=== PATIENT | female | born 1995 | race Caucasian/White ===

== ENCOUNTER 2020-04-01 08:34 | Emergency (ER) | payer OTHER ==
[~2020-04-01] VITALS: Ht 172.7 cm; Wt 83.9 kg
[2020-04-01 08:36] VITALS: BP 124/55
--- NOTE | 2020-04-01 08:40 | NUR ---
Patient ambulated to bed 4. RN evaluating patient at bedside.
--- NOTE | 2020-04-01 08:44 | NUR ---
24 y/o female from home presents to ED with laceration to chin. Pt states she was going hikin and fell and hit chin on rock. Denies LOC, bleeding controlled at this time. 2/10 aching pain, took ibuprofen for pain at time of accident. Awake and alert. VSS
[2020-04-01] MEDS ORDERED: LIDOCAINE/EPI 1% 1:100000 20 ML VIAL INJ ONE ×2 (08:50→08:51)
[2020-04-01] MEDS ORDERED: BACITRACIN OINT 500 UNITS/GM PKT TP ONE ×2 (08:50→10:00)
--- NOTE | 2020-04-01 08:59 | NUR ---
Dr Chowdhury bedside examining pt
--- NOTE | 2020-04-01 10:01 | NUR ---
9 sutures placed to chin, bacitracin applied and bandaid placed to lac repair. Pt tolerated well
[2020-04-01 10:18] VITALS: BP 124/55
--- NOTE | 2020-04-01 10:18 | NUR ---
Patient discharged with v/s stable. Written and verbal after care instructions given and explained. Patient alert, oriented and verbalized understanding of instructions. Ambulatory with steady gait. All questions addressed prior to discharge. ID band removed. Patient advised to follow up with PMD. Rx of Naprosyn 500mg and Bacitracin given. Patient educated on indication of medication including possible reaction and side effects. Opportunity to ask questions provided and answered.
== END 2020-04-01 10:18 | disposition home or self-care (01) ==
LOC: MED 08:34
DX: S01.81XA Laceration without foreign body of other part of head, initial encounter (principal); S60.511A Abrasion of right hand, initial encounter; S80.211A Abrasion, right knee, initial encounter; S40.211A Abrasion of right shoulder, initial encounter; W18.30XA Fall on same level, unspecified, initial encounter; Y93.89 Activity, other specified; Y92.89 Other specified places as the place of occurrence of the external cause; Y99.8 Other external cause status
CPT/HCPCS: 12011; 99283; J2001

== ENCOUNTER 2020-04-06 11:20 | Emergency (ER) | payer OTHER ==
[~2020-04-06] VITALS: Ht 172.7 cm; Wt 84.4 kg
[2020-04-06 11:24] VITALS: BP 116/72
--- NOTE | 2020-04-06 11:27 | NUR ---
Patient ambulated to bed 7. RN evaluating patient at bedside.
--- NOTE | 2020-04-06 11:30 | NUR ---
24 y/o female from home presents to ED for removal of sutures placed to chin lac 5 days ago. Denies pain. Suture site nontender, normal in color. Afebrile at this time. VSS
--- NOTE | 2020-04-06 11:50 | NUR ---
Dr. Pandey is evaluating the patient at bedside.
[2020-04-06 12:10] VITALS: BP 116/72
--- NOTE | 2020-04-06 12:10 | NUR ---
Patient discharged with v/s stable. Written and verbal after care instructions given and explained. Patient verbalized understanding. Ambulatory with steady gait. All questions addressed prior to discharge. Advised to follow up with PMD.
== END 2020-04-06 12:10 | disposition home or self-care (01) ==
LOC: MED 11:20
DX: S01.81XD Laceration without foreign body of other part of head, subsequent encounter (principal); X58.XXXD Exposure to other specified factors, subsequent encounter; Z48.00 Encounter for change or removal of nonsurgical wound dressing
CPT/HCPCS: 99281